=== PATIENT | female | born 1945 | race Caucasian/White ===

== ENCOUNTER 2022-11-12 08:07 | Emergency (ER) | payer BC ==
[~2022-11-12] VITALS: Ht 162.6 cm; Wt 81.6 kg
[2022-11-12 08:19] VITALS: BP 155/92
--- NOTE | 2022-11-12 08:23 | NUR ---
PT AMBULATED TO BED 7
--- NOTE | 2022-11-12 08:30 | NUR ---
77YO FEMALE PT C/O ACHING ABD PAIN AND DIARRHEA-blood X3DAYS. REPORTS SUDDEN ONSET W/ NO RELIEF AFTER PEPCID. ABD TENDER TO TOUCH, NON DISTENDED. DENIES N/V, CHEST PAIN, SOB, FVER OR CHILLS. PT AAOX4, HOB POSITIONED PER COMFORT HX: HTN, AFIB ALLERGIES: PENICILLIN
--- NOTE | 2022-11-12 09:09 | NUR ---
SIN AT BEDSIDE FOR EVALUATION
[2022-11-12 09:18] LABS: BASOPHILS % (AUTO) 0.4 % (0.0-2.0); EOSINOPHILS # (AUTO) 0.1 K/uL (0-0.4); EOSINOPHILS % (AUTO) 2.1 % (0.0-4.0); LYMPHOCYTES # (AUTO) 0.7 K/uL (2.5-16.5); LYMPHOCYTES % (AUTO) 14.5 % (20.5-51.1); MEAN CORPUSCULAR HEMOGLOBIN 29 pg (27-31); MEAN CORPUSCULAR HGB CONC 34 g/dL (33-37); MEAN CORPUSCULAR VOLUME 84.3 fL (80-94); MONOCYTES # (AUTO) 0.6 K/uL (0.8-1.0); MONOCYTES % (AUTO) 11.7 % (1.7-9.3); NEUTROPHILS # (AUTO) 3.4 K/uL (1.8-7.7); NEUTROPHILS % (AUTO) 71.3 % (42.2-75.2); PLATELET COUNT (AUTO) 164 K/uL (140-450); RED BLOOD CELL COUNT(AUTO) 4.87 MIL/uL (4.20-5.40); RED CELL DISTRIBUTION WIDTH 13.9 % (11.6-13.7); WHITE BLOOD COUNT (AUTO) 4.8 K/uL (4.8-10.8)
[2022-11-12] MEDS ORDERED: DICYCLOMINE HCL LIQUID 20 MG, ALUMINUM HYD/MAG/SIMETHICONE 30 ML, LIDOCAINE VISCOUS 2% ... PO ONE ×3 (09:20)
[2022-11-12] MEDS ORDERED: ALUMINUM HYD/MAG/SIMETHICONE 30 ML UDC ONE (09:24)
[2022-11-12] MEDS ORDERED: DICYCLOMINE HCL LIQUID 10 MG/5 ML UDC ONE (09:24)
[2022-11-12 09:35] LABS: ALBUMIN 3.7 g/dL (3.4-5.0); ANION GAP 10.6 (8-16); ASPARTATE AMINOTRANSFERASE 34 U/L (15-37); CARBON DIOXIDE 30.5 mmol/L (21-32); CHLORIDE 105 mmol/L (98-107); CREATININE 0.9 mg/dL (0.6-1.3); GLUCOSE 167 mg/dL (74-106); LIPASE 80 U/L (73-393); POTASSIUM 3.1 mmol/L (3.5-5.1); SODIUM SERUM 143 mmol/L (136-145); UREA NITROGEN, BLOOD 14 mg/dL (7-18)
[2022-11-12 09:39] LABS: APPEARANCE,URINE CLEAR (CLEAR); BILIRUBIN,URINE NEGATIVE (NEGATIVE); BLOOD, URINE 1+ (NEGATIVE); COLOR,URINE YELLOW (YELLOW); LEUKOCYTE ESTERASE ,URINE 3+ (NEGATIVE); NITRITE, URINE NEGATIVE (NEGATIVE); UGLUCOSE NEGATIVE (NEGATIVE)
[2022-11-12 09:46] LABS: RBC,URINE 0-5 /HPF (0-5)
[2022-11-12] MEDS ORDERED: POTASSIUM CHLORIDE 10 MEQ TABER PO ONE (10:35)
[2022-11-12] MEDS ORDERED: SULFAMETH/TRIMETH DS 800/160MG 1 TAB PO ONE (10:35)
[2022-11-12] MEDS ORDERED: LOPE1TAB14 PO (10:37)
[2022-11-12] MEDS ORDERED: SULF-59 PO (10:37)
[2022-11-12 10:40] VITALS: BP 138/88
--- NOTE | 2022-11-12 11:13 | NUR ---
Patient discharged with v/s stable. Written and verbal after care instructions FOR VIRAL GASTROENTERITIS, DIARRHEA AND BLAND DIET given and explained. Patient alert, oriented and verbalized understanding of instructions. Ambulatory with steady gait. All questions addressed prior to discharge. ID band removed. Patient advised to follow up with PMD. Rx of BACTRIM AND IMODIUM given. Opportunity to ask questions provided and answered.
--- NOTE | 2022-11-12 11:29 | NUR ---
The patient's care was reviewed and supervised by [place] [facility] ED, RN.
== END 2022-11-12 11:13 | disposition home or self-care (01) ==
LOC: MED 08:07
DX: A08.4 Viral intestinal infection, unspecified (principal); N39.0 Urinary tract infection, site not specified; E87.6 Hypokalemia; I10 Essential (primary) hypertension; Z79.899 Other long term (current) drug therapy
CPT/HCPCS: 36415; 80053; 81001; 83690; 85025; 87086; 99284

== ENCOUNTER 2022-12-02 07:10 | Emergency (ER) | payer BC ==
[~2022-12-02] VITALS: Ht 154.9 cm; Wt 77.1 kg
[~2022-12-02 07:10] MED LIST: LOPE1TAB14 PO; SULF-59 PO
[2022-12-02 07:21] VITALS: BP 176/77
--- NOTE | 2022-12-02 07:40 | NUR ---
pt to room 4, ambulatory, urine sample obtained
--- NOTE | 2022-12-02 07:41 | NUR ---
Omid cohn in [facility] - 12/02/22 at 0741 by CAYETANO Patient ambulated to bed 4
[2022-12-02 08:34] LABS: APPEARANCE,URINE CLEAR (CLEAR); BILIRUBIN,URINE NEGATIVE (NEGATIVE); BLOOD, URINE NEGATIVE (NEGATIVE); COLOR,URINE YELLOW (YELLOW); LEUKOCYTE ESTERASE ,URINE 1+ (NEGATIVE); NITRITE, URINE NEGATIVE (NEGATIVE); PH,URINE 6.5 (5.0-9.0); UGLUCOSE NEGATIVE (NEGATIVE)
[2022-12-02 08:43] LABS: BASOPHILS % (AUTO) 0.5 % (0.0-2.0); EOSINOPHILS # (AUTO) 0.1 K/uL (0-0.4); EOSINOPHILS % (AUTO) 3.1 % (0.0-4.0); HEMATOCRIT 35.3 % (36-48); HEMOGLOBIN 11.9 g/dL (12.0-16.0); LYMPHOCYTES # (AUTO) 0.8 K/uL (2.5-16.5); LYMPHOCYTES % (AUTO) 27.4 % (20.5-51.1); MEAN CORPUSCULAR HEMOGLOBIN 28 pg (27-31); MEAN CORPUSCULAR HGB CONC 34 g/dL (33-37); MEAN CORPUSCULAR VOLUME 83.7 fL (80-94); MONOCYTES # (AUTO) 0.3 K/uL (0.8-1.0); MONOCYTES % (AUTO) 9.3 % (1.7-9.3); NEUTROPHILS # (AUTO) 1.7 K/uL (1.8-7.7); NEUTROPHILS % (AUTO) 59.7 % (42.2-75.2); PLATELET COUNT (AUTO) 115 K/uL (140-450); RED BLOOD CELL COUNT(AUTO) 4.22 MIL/uL (4.20-5.40); RED CELL DISTRIBUTION WIDTH 13.9 % (11.6-13.7); WHITE BLOOD COUNT (AUTO) 2.8 K/uL (4.8-10.8)
[2022-12-02 08:59] LABS: ALBUMIN 3.6 g/dL (3.4-5.0); ANION GAP 8.7 (8-16); ASPARTATE AMINOTRANSFERASE 23 U/L (15-37); CARBON DIOXIDE 30.4 mmol/L (21-32); CHLORIDE 102 mmol/L (98-107); CREATININE 0.7 mg/dL (0.6-1.3); GLUCOSE 134 mg/dL (74-106); POTASSIUM 4.1 mmol/L (3.5-5.1); SODIUM SERUM 137 mmol/L (136-145); TOTAL BILIRUBIN 0.4 mg/dL (0.0-1.0); UREA NITROGEN, BLOOD 10 mg/dL (7-18)
[2022-12-02 09:00] LABS: RBC,URINE NONE SEEN /HPF (0-5); WBC,URINE 0-5 /HPF (0-5); YEAST,URINE None Seen /HPF (None Seen)
[2022-12-02 09:01] LABS: TRICHOMONAS,URINE None Seen /HPF (None Seen)
[2022-12-02 09:56] LABS: FREE T4 (FREE THYROXINE) 2.85 ng/dL (0.76-1.46); THYROID STIMULATING HORMONE 1.17 uIU/mL (0.34-3.74)
--- NOTE | 2022-12-02 10:07 | NUR ---
DR CRONIN AT BEDSIDE FOR REEVAL
[2022-12-02] MEDS ORDERED: BENZ200C4 PO (10:21)
[2022-12-02 10:29] VITALS: BP 149/65
--- NOTE | 2022-12-02 10:30 | NUR ---
Patient discharged with v/s stable. Written and verbal after care instructions given and explained. Patient alert, oriented and verbalized understanding of instructions. Ambulatory with steady gait. All questions addressed prior to discharge. ID band removed. Patient advised to follow up with PMD. Rx of Benzonatate given. Patient educated on indication of medication including possible reaction and side effects. Opportunity to ask questions provided and answered.
== END 2022-12-02 10:30 | disposition home or self-care (01) ==
LOC: MED 07:10
DX: J06.9 Acute upper respiratory infection, unspecified (principal); Z20.822 Contact with and (suspected) exposure to COVID-19; D72.819 Decreased white blood cell count, unspecified; E03.9 Hypothyroidism, unspecified; I25.10 Atherosclerotic heart disease of native coronary artery without angina pectoris; I10 Essential (primary) hypertension; Z88.0 Allergy status to penicillin; Z79.899 Other long term (current) drug therapy
CPT/HCPCS: 36415; 71045; 80053; 81001; 82550; 83880; 84439; 84443; 84484; 85025; 87086; 87426; 87804; 93005; 99285; Q0092

== ENCOUNTER 2023-02-05 07:15 | Emergency (ER) | payer BC ==
[~2023-02-05] VITALS: Ht 152.4 cm; Wt 79.4 kg
[~2023-02-05 07:15] MED LIST changes: +BENZ200C4 PO
[2023-02-05 07:18] VITALS: BP 160/81; PULSE 77; RESP 17; TEMP 98.6; O2SAT 98
--- NOTE | 2023-02-05 07:18 | NUR ---
TO BED AMBULATORY
--- NOTE | 2023-02-05 07:38 | NUR ---
bibs for dysuria x 4 days. denies hematuria,n,v,d,fever. aao x4. resp even and nonlabored ambulatory
[2023-02-05] MEDS ORDERED: NITR100C7 PO (07:41)
[2023-02-05 08:01] VITALS: BP 150/76; PULSE 79; RESP 18; TEMP 98.2; O2SAT 99
[2023-02-05 08:29] LABS: APPEARANCE,URINE CLOUDY (CLEAR); BILIRUBIN,URINE NEGATIVE (NEGATIVE); BLOOD, URINE 2+ (NEGATIVE); COLOR,URINE STRAW (YELLOW); NITRITE, URINE POSITIVE (NEGATIVE); UGLUCOSE NEGATIVE (NEGATIVE)
[2023-02-05 08:30] LABS: LEUKOCYTE ESTERASE ,URINE 4+ (NEGATIVE)
[2023-02-05 08:39] LABS: CALCIUM OXALATE CRYSTALS,UR None Seen /HPF (None Seen); COARSE GRANULAR CASTS,URINE None Seen /LPF (None Seen); FINE GRANULAR CASTS,URINE None Seen /LPF (None Seen); HYALINE CASTS, URINE None Seen /LPF (None Seen); OTHER CASTS, URINE None Seen /LPF (None Seen); OTHER CRYSTALS,URINE None Seen /HPF (None Seen); RED BLOOD CELL CASTS,URINE None Seen /LPF (None Seen); TRICHOMONAS,URINE None Seen /HPF (None Seen); TRIPLE PHOSPHATE CRYSTAL,UR None Seen /HPF (None Seen); URIC ACID CRYSTALS,URINE None Seen /HPF (None Seen); URINE AMORPHOUS URATE None Seen /HPF (None Seen); WAXY CASTS,URINE None Seen /LPF (None Seen); YEAST,URINE None Seen /HPF (None Seen)
== END 2023-02-05 08:02 | disposition home or self-care (01) ==
LOC: MED 07:15
DX: N39.0 Urinary tract infection, site not specified (principal); I10 Essential (primary) hypertension; I48.91 Unspecified atrial fibrillation; Z90.49 Acquired absence of other specified parts of digestive tract; Z98.890 Other specified postprocedural states; Z79.899 Other long term (current) drug therapy; Z79.2 Long term (current) use of antibiotics; Z88.0 Allergy status to penicillin
CPT/HCPCS: 81001; 87086; 99283

== ENCOUNTER 2023-04-05 12:31 | Emergency (ER) | payer BC ==
[~2023-04-05] VITALS: Ht 152.4 cm; Wt 78.7 kg
[~2023-04-05 12:31] MED LIST changes: +CIPR250T6 PO; +LORA1T1237 PO; +NITR100C7 PO; +PHEN-1877 PO
[2023-04-05 12:49] VITALS: BP 142/62; PULSE 63; RESP 17; TEMP 97.9; O2SAT 99
[2023-04-05 13:44] LABS: BASOPHILS % (AUTO) 0.6 % (0.0-2.0); EOSINOPHILS # (AUTO) 0.2 K/uL (0-0.4); EOSINOPHILS % (AUTO) 4.1 % (0.0-4.0); HEMATOCRIT 35.7 % (36-48); HEMOGLOBIN 12.1 g/dL (12.0-16.0); LYMPHOCYTES # (AUTO) 1.1 K/uL (2.5-16.5); LYMPHOCYTES % (AUTO) 22.5 % (20.5-51.1); MEAN CORPUSCULAR HEMOGLOBIN 28 pg (27-31); MEAN CORPUSCULAR HGB CONC 34 g/dL (33-37); MEAN CORPUSCULAR VOLUME 82.3 fL (80-94); MONOCYTES # (AUTO) 0.5 K/uL (0.8-1.0); MONOCYTES % (AUTO) 10.6 % (1.7-9.3); NEUTROPHILS % (AUTO) 62.2 % (42.2-75.2); PLATELET COUNT (AUTO) 171 K/uL (140-450); RED BLOOD CELL COUNT(AUTO) 4.34 MIL/uL (4.20-5.40); RED CELL DISTRIBUTION WIDTH 13.8 % (11.6-13.7); WHITE BLOOD COUNT (AUTO) 4.7 K/uL (4.8-10.8)
== END 2023-04-05 14:13 | disposition home or self-care (01) ==
LOC: MED 12:31
DX: I87.2 Venous insufficiency (chronic) (peripheral) (principal); I10 Essential (primary) hypertension; Z88.0 Allergy status to penicillin; Z79.899 Other long term (current) drug therapy
CPT/HCPCS: 36415; 85025; 99283

== ENCOUNTER 2023-07-05 10:24 | Emergency (ER) | payer BC ==
[~2023-07-05] VITALS: Ht 152.4 cm; Wt 79.9 kg
[2023-07-05 10:39] VITALS: BP 159/75; PULSE 54; RESP 18; TEMP 98.2; O2SAT 100
[2023-07-05 11:52] VITALS: BP 164/75; PULSE 57; RESP 18; TEMP 98.2; O2SAT 98
[2023-07-05] MEDS ORDERED: HYDR28CR38 TP (12:36)
== END 2023-07-05 12:41 | disposition home or self-care (01) ==
LOC: MED 10:24
DX: L98.8 Other specified disorders of the skin and subcutaneous tissue (principal); I11.9 Hypertensive heart disease without heart failure; Z79.899 Other long term (current) drug therapy; Z88.0 Allergy status to penicillin
CPT/HCPCS: 99282

== ENCOUNTER 2023-07-25 12:22 | Emergency (ER) | payer BC ==
[~2023-07-25] VITALS: Ht 152.4 cm; Wt 78.5 kg
[~2023-07-25 12:22] MED LIST changes: +HYDR28CR38 TP
[2023-07-25 12:46] VITALS: BP 154/63; PULSE 72; RESP 14; O2SAT 99
[2023-07-25 13:32] LABS: APPEARANCE,URINE CLEAR (CLEAR); BILIRUBIN,URINE NEGATIVE (NEGATIVE); BLOOD, URINE 3+ (NEGATIVE); COLOR,URINE YELLOW (YELLOW); LEUKOCYTE ESTERASE ,URINE 3+ (NEGATIVE); NITRITE, URINE NEGATIVE (NEGATIVE); PH,URINE 6.5 (5.0-9.0); PROTEIN,URINE 2+ (NEGATIVE); UGLUCOSE TRACE (NEGATIVE); UROBILINOGEN,URINE 0.2 EU/dL (0.2 - 1)
[2023-07-25 13:47] LABS: BACTERIA,URINE 2+ /HPF (None Seen); SQUAMOUS EPITHELIAL CELL,UR 4-10 (MOD) /LPF (0-3 (FEW)); WBC,URINE 80-100 /HPF (0-5)
[2023-07-25] MEDS ORDERED: CIPR250T6 PO (14:51)
== END 2023-07-25 15:03 | disposition home or self-care (01) ==
LOC: MED 12:22
DX: N30.01 Acute cystitis with hematuria (principal); I10 Essential (primary) hypertension; I48.91 Unspecified atrial fibrillation; Z79.899 Other long term (current) drug therapy; Z79.2 Long term (current) use of antibiotics; Z88.0 Allergy status to penicillin
CPT/HCPCS: 81001; 87086; 99283

== ENCOUNTER 2023-09-27 12:35 | Emergency (ER) | payer BC ==
[~2023-09-27] VITALS: Ht 152.4 cm; Wt 79.8 kg
[2023-09-27 13:06] VITALS: BP 117/52; PULSE 62; RESP 16; TEMP 97.9; O2SAT 98
[2023-09-27] MEDS ORDERED: MIRABULK PO (15:08)
[2023-09-27] MEDS: ACETAMINOPHEN EXTRA STRENGTH 500 MG TAB PO ONE (15:08)
[2023-09-27] MEDS ORDERED: TAMS0.4C96 PO (15:09)
[2023-09-27] MEDS ORDERED: MAGN296S70 PO (15:09)
[2023-09-27] MEDS ORDERED: DICL20GE TP (15:10)
== END 2023-09-27 15:20 | disposition home or self-care (01) ==
LOC: MED 12:35
DX: K59.00 Constipation, unspecified (principal); G44.86 Cervicogenic headache; N20.0 Calculus of kidney; I11.9 Hypertensive heart disease without heart failure; Z88.0 Allergy status to penicillin; Z79.899 Other long term (current) drug therapy
CPT/HCPCS: 99284

== ENCOUNTER 2023-10-11 12:43 | Emergency (ER) | payer BC ==
[~2023-10-11] VITALS: Ht 152.4 cm; Wt 80.3 kg
[~2023-10-11 12:43] MED LIST changes: +DICL20GE TP; +MAGN296S70 PO; +MIRABULK PO; +TAMS0.4C96 PO
[2023-10-11 12:51] VITALS: BP 157/73; PULSE 64; RESP 16; TEMP 98.4; O2SAT 98
[2023-10-11] MEDS ORDERED: SULF-59 PO (13:17)
== END 2023-10-11 13:25 | disposition home or self-care (01) ==
LOC: MED 12:43
DX: N30.00 Acute cystitis without hematuria (principal); I48.91 Unspecified atrial fibrillation; I10 Essential (primary) hypertension; Z79.899 Other long term (current) drug therapy; Z88.0 Allergy status to penicillin
CPT/HCPCS: 81002; 87086; 99283

== ENCOUNTER 2023-10-22 11:04 | Emergency (ER) | payer BC ==
[~2023-10-22] VITALS: Ht 152.4 cm; Wt 80.3 kg
[2023-10-22 11:47] VITALS: BP 152/66; PULSE 56; RESP 18; TEMP 97.6; O2SAT 98
[2023-10-22 14:12] LABS: BILIRUBIN,URINE NEGATIVE (NEGATIVE); BLOOD, URINE NEGATIVE (NEGATIVE); LEUKOCYTE ESTERASE ,URINE NEGATIVE (NEGATIVE); NITRITE, URINE NEGATIVE (NEGATIVE); PROTEIN,URINE NEGATIVE (NEGATIVE); UGLUCOSE TRACE (NEGATIVE); UROBILINOGEN,URINE 0.2 EU/dL (0.2 - 1)
[2023-10-22 14:15] LABS: APPEARANCE,URINE CLEAR (CLEAR)
[2023-10-22 14:16] LABS: COLOR,URINE YELLOW (YELLOW)
[2023-10-22] MEDS: FLUCONAZOLE 100 MG TAB PO ONE (14:31)
== END 2023-10-22 14:50 | disposition home or self-care (01) ==
LOC: MED 11:04
DX: R39.15 Urgency of urination (principal); R35.0 Frequency of micturition; R10.30 Lower abdominal pain, unspecified; I48.91 Unspecified atrial fibrillation; I10 Essential (primary) hypertension; Z79.899 Other long term (current) drug therapy; Z88.0 Allergy status to penicillin
CPT/HCPCS: 81003; 87086; 99283

== ENCOUNTER 2023-11-06 11:24 | Emergency (ER) | payer BC ==
[~2023-11-06] VITALS: Ht 152.4 cm; Wt 79.8 kg
[2023-11-06 11:31] VITALS: BP 122/67; PULSE 61; RESP 16; TEMP 98.4; O2SAT 100
[2023-11-06 12:47] LABS: BILIRUBIN,URINE NEGATIVE (NEGATIVE); BLOOD, URINE 1+ (NEGATIVE); COLOR,URINE YELLOW (YELLOW); LEUKOCYTE ESTERASE ,URINE 2+ (NEGATIVE); PH,URINE 6.5 (5.0-9.0); PROTEIN,URINE NEGATIVE (NEGATIVE); UGLUCOSE NEGATIVE (NEGATIVE); UROBILINOGEN,URINE 0.2 EU/dL (0.2 - 1)
[2023-11-06 13:02] LABS: APPEARANCE,URINE HAZY (CLEAR)
[2023-11-06 13:04] LABS: BACTERIA,URINE 2+ /HPF (None Seen); NITRITE, URINE POSITIVE (NEGATIVE); WBC,URINE 60-80 /HPF (0-5)
[2023-11-06 13:05] LABS: RBC,URINE 20-50 /HPF (0-5)
[2023-11-06] MEDS ORDERED: NITR100C7 PO (13:11)
[2023-11-06] MEDS ORDERED: PYR100 PO (13:11)
== END 2023-11-06 13:17 | disposition home or self-care (01) ==
LOC: MED 11:24
DX: N39.0 Urinary tract infection, site not specified (principal); I11.9 Hypertensive heart disease without heart failure; Z79.899 Other long term (current) drug therapy
CPT/HCPCS: 81001; 87086; 99283

== ENCOUNTER 2023-12-06 14:27 | Emergency (ER) | payer BC ==
[~2023-12-06] VITALS: Ht 152.4 cm; Wt 78.5 kg
[~2023-12-06 14:27] MED LIST changes: +PYR100 PO
[2023-12-06 14:37] VITALS: BP 158/73; PULSE 67; RESP 16; TEMP 97.8; O2SAT 96
[2023-12-06 15:20] LABS: BASOPHILS % (AUTO) 0.7 % (0.0-2.0); EOSINOPHILS # (AUTO) 0.1 K/uL (0-0.4); EOSINOPHILS % (AUTO) 3.1 % (0.0-4.0); HEMATOCRIT 33.3 % (36-48); HEMOGLOBIN 11.8 g/dL (12.0-16.0); LYMPHOCYTES % (AUTO) 21.1 % (20.5-51.1); MEAN CORPUSCULAR HEMOGLOBIN 29 pg (27-31); MEAN CORPUSCULAR HGB CONC 35 g/dL (33-37); MEAN CORPUSCULAR VOLUME 82.7 fL (80-94); MONOCYTES # (AUTO) 0.5 K/uL (0.8-1.0); NEUTROPHILS % (AUTO) 64.1 % (42.2-75.2); PLATELET COUNT (AUTO) 172 K/uL (140-450); RED BLOOD CELL COUNT(AUTO) 4.02 MIL/uL (4.20-5.40); RED CELL DISTRIBUTION WIDTH 13.9 % (11.6-13.7); WHITE BLOOD COUNT (AUTO) 4.7 K/uL (4.8-10.8)
[2023-12-06 15:47] LABS: ANION GAP 9.6 (8-16); CALCIUM 8.9 mg/dL (8.5-10.1); CARBON DIOXIDE 31.2 mmol/L (21-32); CHLORIDE 96 mmol/L (98-107); CREATININE 0.9 mg/dL (0.6-1.3); GLUCOSE 151 mg/dL (74-106); SODIUM SERUM 134 mmol/L (136-145); UREA NITROGEN, BLOOD 14 mg/dL (7-18)
[2023-12-06 15:51] LABS: POTASSIUM 2.8 mmol/L (3.5-5.1)
[2023-12-06] MEDS: POTASSIUM CHLORIDE 10 MEQ TABER PO ONE (16:07)
[2023-12-06 16:19] VITALS: BP 158/73; PULSE 67; RESP 16; TEMP 97.8; O2SAT 96
== END 2023-12-06 16:17 | disposition home or self-care (01) ==
LOC: MED 14:27
DX: T50.991A Poisoning by other drugs, medicaments and biological substances, accidental (unintentional), initial encounter (principal); E87.6 Hypokalemia; N39.0 Urinary tract infection, site not specified; I48.91 Unspecified atrial fibrillation; I10 Essential (primary) hypertension; Z79.899 Other long term (current) drug therapy; Z88.0 Allergy status to penicillin; Y92.89 Other specified places as the place of occurrence of the external cause
CPT/HCPCS: 36415; 80048; 84484; 85025; 93005; 99284

== ENCOUNTER 2024-01-07 12:03 | Emergency (ER) | payer BC ==
[~2024-01-07] VITALS: Ht 152.4 cm; Wt 79.4 kg
[2024-01-07 12:41] VITALS: BP 118/59; PULSE 68; RESP 16; TEMP 98.4; O2SAT 98
[2024-01-07 14:18] LABS: ANION GAP 12.9 (8-16); CALCIUM 9.1 mg/dL (8.5-10.1); CARBON DIOXIDE 27.5 mmol/L (21-32); CHLORIDE 94 mmol/L (98-107); CREATININE 1.1 mg/dL (0.6-1.3); GLUCOSE 267 mg/dL (74-106); POTASSIUM 3.4 mmol/L (3.5-5.1); SODIUM SERUM 131 mmol/L (136-145); UREA NITROGEN, BLOOD 15 mg/dL (7-18)
[2024-01-07 14:37] LABS: BILIRUBIN,URINE NEGATIVE (NEGATIVE); BLOOD, URINE 3+ (NEGATIVE); LEUKOCYTE ESTERASE ,URINE 3+ (NEGATIVE); NITRITE, URINE NEGATIVE (NEGATIVE); PROTEIN,URINE 2+ (NEGATIVE); UGLUCOSE NEGATIVE (NEGATIVE); UROBILINOGEN,URINE 0.2 EU/dL (0.2 - 1)
[2024-01-07 14:38] LABS: APPEARANCE,URINE CLOUDY (CLEAR); COLOR,URINE AMBER (YELLOW)
[2024-01-07] MEDS ORDERED: PHEN-1877 PO (14:43)
[2024-01-07] MEDS ORDERED: CEPH250C16 PO (14:43)
[2024-01-07 14:49] LABS: BACTERIA,URINE >30 (MANY) /HPF (None Seen); MUCUS,URINE 1+ /LPF (None Seen); RBC,URINE TOO NUMEROUS TO COUN /HPF (0-5); SQUAMOUS EPITHELIAL CELL,UR 0-3 (FEW) /LPF (0-3 (FEW)); WBC,URINE TOO MANY TO COUNT /HPF (0-5)
[2024-01-07] MEDS ORDERED: SULF-59 PO (14:54)
[2024-01-07 16:38] VITALS: O2SAT 98
== END 2024-01-07 16:13 | disposition home or self-care (01) ==
LOC: MED 12:03
DX: N30.00 Acute cystitis without hematuria (principal); I11.9 Hypertensive heart disease without heart failure; Z88.0 Allergy status to penicillin; Z79.899 Other long term (current) drug therapy
CPT/HCPCS: 36415; 80048; 81001; 87086; 99283

== ENCOUNTER 2024-01-11 14:03 | Emergency (ER) | payer BC ==
[~2024-01-11] VITALS: Ht 152.4 cm; Wt 79.4 kg
[2024-01-11 14:37] VITALS: BP 119/51; PULSE 64; RESP 18; TEMP 98.6; O2SAT 99
[2024-01-11] MEDS: predniSONE 20 MG TAB PO ONE (15:30)
[2024-01-11 15:57] LABS: BILIRUBIN,URINE NEGATIVE (NEGATIVE); BLOOD, URINE NEGATIVE (NEGATIVE); COLOR,URINE YELLOW (YELLOW); LEUKOCYTE ESTERASE ,URINE 1+ (NEGATIVE); NITRITE, URINE POSITIVE (NEGATIVE); PH,URINE 6.5 (5.0-9.0); PROTEIN,URINE NEGATIVE (NEGATIVE); UGLUCOSE NEGATIVE (NEGATIVE); UROBILINOGEN,URINE 0.2 EU/dL (0.2 - 1)
[2024-01-11 16:35] VITALS: BP 127/57; PULSE 62; RESP 18; TEMP 98.4; O2SAT 99
[2024-01-11] MEDS ORDERED: SULF-59 PO (16:39)
[2024-01-11] MEDS ORDERED: PRED20TA5 PO (16:39)
[2024-01-11] MEDS ORDERED: BEN50 PO (16:39)
[2024-01-11 16:57] LABS: APPEARANCE,URINE HAZY (CLEAR)
[2024-01-11 17:16] LABS: BACTERIA,URINE 1+ /HPF (None Seen); RBC,URINE NONE SEEN /HPF (0-5); SQUAMOUS EPITHELIAL CELL,UR 4-10 (MOD) /LPF (0-3 (FEW)); WBC,URINE 0-5 /HPF (0-5)
== END 2024-01-11 16:48 | disposition home or self-care (01) ==
LOC: MED 14:03
DX: T78.40XA Allergy, unspecified, initial encounter (principal); N39.0 Urinary tract infection, site not specified; I48.91 Unspecified atrial fibrillation; I10 Essential (primary) hypertension; Z76.0 Encounter for issue of repeat prescription; Z79.899 Other long term (current) drug therapy; Z79.2 Long term (current) use of antibiotics; Z88.0 Allergy status to penicillin; X58.XXXA Exposure to other specified factors, initial encounter
CPT/HCPCS: 81001; 87086; 87186; 99283; J7512

== ENCOUNTER 2024-02-26 07:50 | Emergency (ER) | payer BC ==
[~2024-02-26] VITALS: Ht 152.4 cm; Wt 79.1 kg
[~2024-02-26 07:50] MED LIST changes: +BEN50 PO; +PRED20TA5 PO
[2024-02-26 07:58] VITALS: BP 153/73; PULSE 80; RESP 16; TEMP 97.7; O2SAT 100
[2024-02-26 08:32] VITALS: TEMP 97.7
[2024-02-26 08:33] LABS: BASOPHILS % (AUTO) 0.4 % (0.0-2.0); EOSINOPHILS # (AUTO) 0.1 K/uL (0-0.4); EOSINOPHILS % (AUTO) 1.6 % (0.0-4.0); HEMATOCRIT 35.7 % (36-48); HEMOGLOBIN 12.3 g/dL (12.0-16.0); LYMPHOCYTES % (AUTO) 12.9 % (20.5-51.1); MEAN CORPUSCULAR HEMOGLOBIN 28 pg (27-31); MEAN CORPUSCULAR HGB CONC 34 g/dL (33-37); MEAN CORPUSCULAR VOLUME 82.8 fL (80-94); MONOCYTES # (AUTO) 0.6 K/uL (0.8-1.0); MONOCYTES % (AUTO) 7.6 % (1.7-9.3); NEUTROPHILS # (AUTO) 5.9 K/uL (1.8-7.7); NEUTROPHILS % (AUTO) 77.5 % (42.2-75.2); PLATELET COUNT (AUTO) 172 K/uL (140-450); RED BLOOD CELL COUNT(AUTO) 4.31 MIL/uL (4.20-5.40); RED CELL DISTRIBUTION WIDTH 13.9 % (11.6-13.7); WHITE BLOOD COUNT (AUTO) 7.6 K/uL (4.8-10.8)
[2024-02-26 08:41] LABS: APPEARANCE,URINE CLEAR (CLEAR); BILIRUBIN,URINE NEGATIVE (NEGATIVE); BLOOD, URINE NEGATIVE (NEGATIVE); COLOR,URINE YELLOW (YELLOW); LEUKOCYTE ESTERASE ,URINE NEGATIVE (NEGATIVE); NITRITE, URINE NEGATIVE (NEGATIVE); PH,URINE 6.5 (5.0-9.0); PROTEIN,URINE NEGATIVE (NEGATIVE); UGLUCOSE NEGATIVE (NEGATIVE); UROBILINOGEN,URINE 0.2 EU/dL (0.2 - 1)
[2024-02-26] MEDS: ACETAMINOPHEN EXTRA STRENGTH 500 MG TAB PO ONE (08:44)
[2024-02-26] MEDS: KETOROLAC 30 MG/ML VIAL IVP ONE (08:44)
[2024-02-26 09:30] LABS: ANION GAP 10.3 (8-16); CALCIUM 9.2 mg/dL (8.5-10.1); CARBON DIOXIDE 30.2 mmol/L (21-32); CHLORIDE 98 mmol/L (98-107); CREATININE 0.9 mg/dL (0.6-1.3); GLUCOSE 202 mg/dL (74-106); POTASSIUM 3.5 mmol/L (3.5-5.1); SODIUM SERUM 135 mmol/L (136-145); UREA NITROGEN, BLOOD 14 mg/dL (7-18)
[2024-02-26 09:32] LABS: ALBUMIN 3.8 g/dL (3.4-5.0); BILIRUBIN,DIRECT 0.3 mg/dL (0.0-0.3); TOTAL BILIRUBIN 1.3 mg/dL (0.0-1.0); TOTAL PROTEIN, SERUM 7.5 g/dL (6.4-8.2)
[2024-02-26] MEDS ORDERED: METR-520 PO (10:31)
[2024-02-26] MEDS ORDERED: CIPR500T4 PO (10:32)
[2024-02-26] MEDS ORDERED: ONDA-188 PO (10:32)
[2024-02-26 11:08] VITALS: BP 134/60; PULSE 77; RESP 18; O2SAT 99
== END 2024-02-26 11:08 | disposition home or self-care (01) ==
LOC: MED 07:50
DX: K57.92 Diverticulitis of intestine, part unspecified, without perforation or abscess without bleeding (principal); I10 Essential (primary) hypertension; I48.91 Unspecified atrial fibrillation; Z79.2 Long term (current) use of antibiotics; Z79.1 Long term (current) use of non-steroidal anti-inflammatories (NSAID); Z79.899 Other long term (current) drug therapy; Z88.0 Allergy status to penicillin
CPT/HCPCS: 36415; 74176; 80048; 80076; 81003; 83690; 85025; 96374; 99285; J1885

== ENCOUNTER 2024-04-09 09:18 | Emergency (ER) | payer BC ==
[~2024-04-09] VITALS: Ht 152.4 cm; Wt 80.0 kg
[~2024-04-09 09:18] MED LIST changes: +CIPR500T4 PO; +METR-520 PO; +ONDA-188 PO
[2024-04-09 09:33] VITALS: BP 160/64; PULSE 63; RESP 17; TEMP 98.3; O2SAT 99
--- NOTE | 2024-04-09 10:03 | NUR ---
MD CHEUNG AT BEDSIDE EVALUATING PATIENT
[2024-04-09] MEDS ORDERED: LID5T TP (10:11)
[2024-04-09 10:18] VITALS: BP 160/64; PULSE 63; RESP 17; TEMP 98.3; O2SAT 99
--- NOTE | 2024-04-09 10:18 | NUR ---
Patient discharged with v/s stable. Written and verbal after care instructions given and explained. Patient alert, oriented and verbalized understanding of instructions. Ambulatory with steady gait. All questions addressed prior to discharge. ID band removed. Patient advised to follow up with PMD. Rx of LIDODERM 5%PATCH given and to be picked up at [facility] pharmacy. Patient educated on indication of medication including possible reaction and side effects. Opportunity to ask questions provided and answered.
== END 2024-04-09 10:18 | disposition home or self-care (01) ==
LOC: MED 09:18
DX: S56.911A Strain of unspecified muscles, fascia and tendons at forearm level, right arm, initial encounter (principal); R03.0 Elevated blood-pressure reading, without diagnosis of hypertension; I10 Essential (primary) hypertension; I48.91 Unspecified atrial fibrillation; Z79.899 Other long term (current) drug therapy; Z79.01 Long term (current) use of anticoagulants; Z88.0 Allergy status to penicillin; X58.XXXA Exposure to other specified factors, initial encounter; Y92.89 Other specified places as the place of occurrence of the external cause; Y93.89 Activity, other specified; Y99.8 Other external cause status
CPT/HCPCS: 99282

== ENCOUNTER 2024-05-08 16:00 | Emergency (ER) | payer BC ==
[~2024-05-08] VITALS: Ht 149.9 cm; Wt 79.0 kg
[~2024-05-08 16:00] MED LIST changes: +LID5T TP
[2024-05-08 16:11] VITALS: BP 121/59; PULSE 61; RESP 16; TEMP 98.8; O2SAT 99
[2024-05-08] MEDS: ACETAMINOPHEN EXTRA STRENGTH 500 MG TAB PO ONE (17:27)
[2024-05-08] MEDS: LIDOCAINE 5% 1 EA PATCH TP ONE (17:28)
[2024-05-08] MEDS ORDERED: ACETAMINOPHEN 120 MG SUPP RC ONE (17:44)
[2024-05-08] MEDS ORDERED: ONDANSETRON 4 MG ODT ONE (17:44)
[2024-05-08] MEDS ORDERED: ACET500T99 PO (17:48)
[2024-05-08 18:20] VITALS: BP 119/62; PULSE 66; RESP 16; TEMP 98.8; O2SAT 99
== END 2024-05-08 18:20 | disposition home or self-care (01) ==
LOC: MED 16:00
DX: S39.012A Strain of muscle, fascia and tendon of lower back, initial encounter (principal); S30.0XXA Contusion of lower back and pelvis, initial encounter; S40.022A Contusion of left upper arm, initial encounter; M53.3 Sacrococcygeal disorders, not elsewhere classified; I48.91 Unspecified atrial fibrillation; I10 Essential (primary) hypertension; E78.00 Pure hypercholesterolemia, unspecified; Z79.899 Other long term (current) drug therapy; Z79.01 Long term (current) use of anticoagulants; Z88.0 Allergy status to penicillin; V89.2XXA Person injured in unspecified motor-vehicle accident, traffic, initial encounter; Y93.89 Activity, other specified; Y92.410 Unspecified street and highway as the place of occurrence of the external cause; Y99.8 Other external cause status
CPT/HCPCS: 72110; 72170; 73060; 99284; Q0162

== ENCOUNTER 2024-05-22 14:36 | Emergency (ER) | payer BC ==
[~2024-05-22] VITALS: Ht 152.4 cm; Wt 77.1 kg
[~2024-05-22 14:36] MED LIST changes: +ACET500T99 PO
[2024-05-22 14:49] VITALS: BP 92/71; PULSE 65; RESP 18; TEMP 98.5; O2SAT 98
[2024-05-22 15:14] LABS: APPEARANCE,URINE CLOUDY (CLEAR); BILIRUBIN,URINE NEGATIVE (NEGATIVE); BLOOD, URINE TRACE-I (NEGATIVE); LEUKOCYTE ESTERASE ,URINE 3+ (NEGATIVE); NITRITE, URINE POSITIVE (NEGATIVE); PH,URINE 6.5 (5.0-9.0); PROTEIN,URINE NEGATIVE (NEGATIVE); UGLUCOSE NEGATIVE (NEGATIVE); UROBILINOGEN,URINE 0.2 EU/dL (0.2 - 1)
[2024-05-22 15:15] LABS: COLOR,URINE AMBER (YELLOW)
[2024-05-22 15:19] LABS: BACTERIA,URINE >30 (MANY) /HPF (None Seen); MUCUS,URINE 1+ /LPF (None Seen); SQUAMOUS EPITHELIAL CELL,UR 4-10 (MOD) /LPF (0-3 (FEW)); WBC,URINE 16-25 (MOD) /HPF (0-5)
[2024-05-22] MEDS ORDERED: CIPR500T4 PO (15:30)
[2024-05-22] MEDS ORDERED: IBUP-2213 PO (15:30)
[2024-05-22] MEDS: KETOROLAC 60 MG/2 ML VIAL IM ONE (16:04)
== END 2024-05-22 16:06 | disposition home or self-care (01) ==
LOC: MED 14:36
DX: N39.0 Urinary tract infection, site not specified (principal); M54.2 Cervicalgia; I10 Essential (primary) hypertension; I48.91 Unspecified atrial fibrillation; Z79.899 Other long term (current) drug therapy; Z88.0 Allergy status to penicillin
CPT/HCPCS: 81001; 87086; 96372; 99283; J1885

== ENCOUNTER 2024-06-03 11:17 | Emergency (ER) | payer BC ==
[~2024-06-03] VITALS: Ht 152.4 cm; Wt 78.9 kg
[~2024-06-03 11:17] MED LIST changes: +IBUP-2213 PO
[2024-06-03 11:39] VITALS: BP 137/54; PULSE 54; RESP 15; TEMP 98.6; O2SAT 100
[2024-06-03 12:15] LABS: APPEARANCE,URINE HAZY (CLEAR); BILIRUBIN,URINE NEGATIVE (NEGATIVE); BLOOD, URINE 1+ (NEGATIVE); COLOR,URINE YELLOW (YELLOW); LEUKOCYTE ESTERASE ,URINE 2+ (NEGATIVE); PH,URINE 6.5 (5.0-9.0); PROTEIN,URINE NEGATIVE (NEGATIVE); UGLUCOSE NEGATIVE (NEGATIVE); UROBILINOGEN,URINE 0.2 EU/dL (0.2 - 1)
[2024-06-03 12:18] LABS: BACTERIA,URINE 1+ /HPF (None Seen); NITRITE, URINE POSITIVE (NEGATIVE); WBC,URINE TOO MANY TO COUNT /HPF (0-5)
[2024-06-03 12:22] LABS: RBC,URINE 11-20 (MOD) /HPF (0-5)
[2024-06-03 12:24] LABS: SQUAMOUS EPITHELIAL CELL,UR 4-10 (MOD) /LPF (0-3 (FEW))
[2024-06-03] MEDS ORDERED: PHEN-1877 PO (13:10)
== END 2024-06-03 13:16 | disposition home or self-care (01) ==
LOC: MED 11:17
DX: N39.0 Urinary tract infection, site not specified (principal); I48.91 Unspecified atrial fibrillation; I10 Essential (primary) hypertension; Z98.890 Other specified postprocedural states; Z85.828 Personal history of other malignant neoplasm of skin; Z79.899 Other long term (current) drug therapy; Z79.01 Long term (current) use of anticoagulants; Z88.0 Allergy status to penicillin
CPT/HCPCS: 81001; 87086; 87186; 99283